=== PATIENT | male | born 1960 | race Two or more races ===

== ENCOUNTER 2024-12-17 11:14 | Emergency (ER) | payer OTHER ==
[~2024-12-17] VITALS: Ht 172.7 cm; Wt 74.8 kg
[2024-12-17] MEDS ORDERED: COZAAR50 MG PO (11:25)
[2024-12-17] MEDS ORDERED: ATORVASTATIN CA10 MG PO (11:25)
[2024-12-17] MEDS ORDERED: DEXAMETHASONE SODIUM PHOSPHATE 4 MG/ML VIAL ONE (11:41)
[2024-12-17] MEDS ORDERED: KETOROLAC TROMETHAMINE 60 MG VIAL IM ONE ×2 (11:41→11:45)
[2024-12-17] MEDS ORDERED: DEXAMETHASONE SODIUM PHOSPHATE 4 MG/ML VIAL IM ONE (11:45)
[2024-12-17] MEDS ORDERED: NAPR500T14 PO (13:23)
[2024-12-17 13:35] VITALS: BP 125/78; O2SAT 100
== END 2024-12-17 13:39 | disposition home or self-care (01) ==
LOC: ER 11:14
DX: S40.012A Contusion of left shoulder, initial encounter (principal); V19.9XXA Pedal cyclist (driver) (passenger) injured in unspecified traffic accident, initial encounter; Y93.89 Activity, other specified; Y92.89 Other specified places as the place of occurrence of the external cause; Y99.9 Unspecified external cause status; I10 Essential (primary) hypertension